=== PATIENT | male | born 1965 | race American Indian/Alaskan Native ===

== ENCOUNTER 2019-12-03 05:47 | Emergency (ER) | payer SELFPAY ==
[2019-12-03 06:04] VITALS: BP 170/101
[2019-12-03 07:10] LABS: Hematocrit 25.4 % (35.5-45.6); Hemoglobin 8.6 gm/dl (11.8-15.2); Mean Corpuscular HGB Conc 34 % (32-34); Mean Corpuscular Volume 81 fl (84-94); Platelet Count 194 K/mm3 (140-440); Red Blood Count 3.13 M/mm3 (3.65-5.03); Red Cell Distribution Width 15.4 % (13.2-15.2)
[2019-12-03 07:15] LABS: Calcium 8.6 mg/dL (8.4-10.2)
== END 2019-12-03 23:45 | disposition left against medical advice (07) ==
LOC: ED 05:47
DX: R53.1 Weakness (principal); Z53.21 Procedure and treatment not carried out due to patient leaving prior to being seen by health care provider
CPT/HCPCS: 36415; 80048; 85027; 93005; 93010